=== PATIENT | female | born 1990 | race African-American/Black ===

== ENCOUNTER 2016-11-07 23:07 | Inpatient (IN) | payer OTHER ==
[~2016-11-07] VITALS: Ht 152.4 cm; Wt 70.2 kg
--- NOTE | ~2016-11-07 | P ---
[facility] [place] [address] PROCEDURE REPORT Name: HELEN SORENSEN Room #: 542-P [facility] IN M.R.#: [id number] Admission: 11/08/16 Attend Phys: Rico Ying DO Discharge: Date of : 91 Report #: [id number] THIS REPORT FOR: //name// CC: Rico Ying NO PCP FLEXIBLE SIGMOIDOSCOPY REPORT BRIEF HISTORY: The patient is a 26-year-old woman with history of alternating diarrhea and constipation, abdominal pain, and abnormal CT suggesting a left-sided colitis. She also has been treated for diverticulitis in the past. PREOPERATIVE DIAGNOSES: Abnormal CT revealing colitis with abdominal pain. POSTOPERATIVE DIAGNOSES: Abnormal CT revealing colitis with abdominal pain. MEDICATIONS: Deep sedation with propofol per anesthesia. SPECIMEN: None. ESTIMATED BLOOD LOSS: None. PROCEDURE: Flexible sigmoidoscopy to the distal transverse colon. FINDINGS: Prior to propofol sedation, procedure of flexible sigmoidoscopy discussed with the patient as well as potential risks and its complications. She indicates she understands and desires to proceed. DESCRIPTION OF PROCEDURE: With the patient in left lateral decubitus position, digital examination was completed. Upon digital examination, it was noted there was a thick mucousy exudate coming from the vagina. The perianal area was unremarkable. Digital rectal exam was unremarkable. Subsequently, the Pentax video pediatric colonoscope was introduced into the rectum, advanced under direct vision to the distal transverse colon. At that point, the scope was slowly withdrawn, and careful circumferential views obtained. The prep was adequate for our purposes today. There was some residual stool material, but overall reasonably good views were obtained. Mucosa was within normal limits. Normal vascular pattern. Normal light reflex. As we withdrew the scope, no mucosal abnormalities were seen. The colonic mucosa was normal. I do not see evidence of colitis or inflammatory changes. The scope was withdrawn in the rectum. Upon retroflexion, no abnormalities were seen other than small hemorrhoids. Scope was withdrawn. The patient tolerated the procedure well. CONDITION OF THE PATIENT UPON DISCHARGE: Following procedure, the patient was drowsy, aroused and conversant. She will be discharged home when fully ambulatory. [facility] [address] [place] [address] PROCEDURE REPORT Name: HELEN SORENSEN Room #: 542-P [facility] IN M.R.#: [id number] Admission: 11/08/16 Attend Phys: Rico Ying DO Discharge: Date of : 91 Report #: [id number] DISPOSITION: The patient with abnormal CT suggesting colitis. There is no evidence of colitis on today's exam. I suspect the thickening noted on CT was related to incomplete distention of the colon at the time of CT. PLAN: She was noted to have a discharge in the vaginal area. MACHINIST APPRENTICE WOOD evaluation may be a consideration for this patient. <ELECTRONICALLY SIGNED> By: Vahid Rodriguez MD 11/17/16 0935 1434 0512 Vahid Rodriguez MD /nt
[2016-11-07 23:09] VITALS: BP 131/72
[2016-11-07] MEDS ORDERED: AUGMENTIN400 MG/53 PO (23:20)
[2016-11-07] MEDS ORDERED: ZOFRAN ODT4 MG PO (23:21)
[2016-11-07] MEDS ORDERED: LIORESAL 10 MG10 MG (23:33)
[2016-11-07] MEDS ORDERED: HYDROCODONE-ACE15 ML PO (23:34)
[2016-11-08 00:34] LABS: ABSOLUTE NEUTROPHILS 5.1 thou/uL (1.4-8.2); BASOPHILS 0.1 % (0.0-2.0); EOSINOPHILS 1.1 % (0.0-3.0); HEMATOCRIT 38.8 % (37.0-47.0); HEMOGLOBIN 12.7 gm/dL (12.0-15.0); MCH 27.9 pg (26.0-34.0); MCHC 32.6 g/dL (28.0-37.0); MCV 85.5 fL (80.0-100.0); MONOCYTES 7.2 % (1.0-8.0); PLATELET COUNT 244 thou/uL (150-400); POLYS 69.6 % (36.0-66.0); RBC 4.54 mil/uL (4.20-5.00); RDW 14.2 % (10.5-14.5); WBC 7.3 thou/uL (4.0-11.0)
[2016-11-08 00:35] LABS: MANUAL DIFF NO
[2016-11-08 00:41] LABS: CALCIUM 9.1 mg/dL (8.5-10.1); CREATININE 0.7 mg/dL (0.6-1.0); POTASSIUM 3.5 mmol/L (3.5-5.1)
[2016-11-08 01:27] VITALS: BP 130/59
[2016-11-08 02:00] VITALS: BP 105/54
[2016-11-08 05:59] VITALS: BP 117/78
[2016-11-08 07:30] VITALS: BP 124/78
[2016-11-08 15:39] VITALS: BP 122/78
[2016-11-08 20:00] VITALS: BP 124/85
[2016-11-09 04:01] VITALS: BP 119/81
[2016-11-09 05:26] LABS: ABSOLUTE NEUTROPHILS 5.2 thou/uL (1.4-8.2); BASOPHILS 0.2 % (0.0-2.0); EOSINOPHILS 2.6 % (0.0-3.0); HEMATOCRIT 34.9 % (37.0-47.0); HEMOGLOBIN 11.3 gm/dL (12.0-15.0); LYMPHOCYTES 19.7 % (24.0-44.0); MANUAL DIFF NO; MCH 27.7 pg (26.0-34.0); MCHC 32.5 g/dL (28.0-37.0); MCV 85.2 fL (80.0-100.0); MONOCYTES 6.5 % (1.0-8.0); PLATELET COUNT 220 thou/uL (150-400); RBC 4.09 mil/uL (4.20-5.00); RDW 13.9 % (10.5-14.5); WBC 7.3 thou/uL (4.0-11.0)
[2016-11-09 05:42] LABS: CALCIUM 8.9 mg/dL (8.5-10.1); CREATININE 0.8 mg/dL (0.6-1.0); POTASSIUM 3.6 mmol/L (3.5-5.1)
[2016-11-09 10:16] VITALS: BP 126/71
[2016-11-09 15:03] VITALS: BP 125/85
[2016-11-09 15:16] LABS: URINE BILIRUBIN NEGATIVE (Negative); URINE BLOOD TRACE (Negative); URINE COLOR YELLOW; URINE GLUCOSE-RANDOM* NEGATIVE (Negative); URINE KETONES 2+ (Negative); URINE LEUKOCYTES-REFLEX 1+ (Negative); URINE PROTEIN (DIPSTICK) NEGATIVE (Negative); URINE UROBILINOGEN 0.2 E.U./dl (0.2-1.0)
[2016-11-09 15:24] LABS: SQUAMOUS >10 Many /LPF (0-3); YEAST-REFLEX Present (None Seen)
[2016-11-09 15:25] LABS: CASTS None Seen /LPF (None Seen); CRYSTALS None Seen /LPF (None Seen); URINE RBC 0-2 Rare /HPF (0-2); URINE WBC-REFLEX 0-5 Rare /HPF (0-5)
[2016-11-09 20:35] VITALS: BP 113/69
[2016-11-10 06:49] LABS: HEMATOCRIT 34.8 % (37.0-47.0); HEMOGLOBIN 11.5 gm/dL (12.0-15.0); MCHC 32.9 g/dL (28.0-37.0); MCV 85.1 fL (80.0-100.0); RBC 4.09 mil/uL (4.20-5.00); WBC 7.4 thou/uL (4.0-11.0)
[2016-11-10 06:56] LABS: CALCIUM 8.7 mg/dL (8.5-10.1); CREATININE 0.8 mg/dL (0.6-1.0); POTASSIUM 3.5 mmol/L (3.5-5.1)
[2016-11-10 07:20] VITALS: BP 121/81
[2016-11-10 15:54] VITALS: BP 134/84
[2016-11-10 19:23] VITALS: BP 123/80
[2016-11-11 04:50] VITALS: BP 107/68
[2016-11-11 13:31] VITALS: BP 122/62
[2016-11-11 16:25] VITALS: BP 122/70
[2016-11-11 19:40] VITALS: BP 112/70
[2016-11-12 04:40] VITALS: BP 108/62
[2016-11-12 07:53] VITALS: BP 116/70
[2016-11-12 15:18] VITALS: BP 102/62
[2016-11-12 19:34] VITALS: BP 157/99
[2016-11-13 03:35] VITALS: BP 100/53
[2016-11-13 08:10] VITALS: BP 113/63
[2016-11-13 15:03] VITALS: BP 109/67
[2016-11-13 20:00] VITALS: BP 118/80
[2016-11-14 04:10] VITALS: BP 110/69
[2016-11-14 09:02] VITALS: BP 100/53
[2016-11-14 17:03] VITALS: BP 116/77
[2016-11-14 19:23] VITALS: BP 111/66
[2016-11-15 03:05] VITALS: BP 112/66
[2016-11-15 08:43] VITALS: BP 104/67
[2016-11-15 15:25] VITALS: BP 116/64
[2016-11-15 19:27] VITALS: BP 114/68
[2016-11-16 07:29] VITALS: BP 102/45
[2016-11-16 15:42] VITALS: BP 90/63
[2016-11-16 20:11] VITALS: BP 127/67
[2016-11-17 05:36] VITALS: BP 127/53
[2016-11-17 05:39] VITALS: BP 124/74
[2016-11-17] MEDS ORDERED: ERYPED 200 MG/200 MG PO (08:15)
[2016-11-17 08:30] VITALS: BP 143/80
[2016-11-17 09:57] VITALS: BP 143/80
== END 2016-11-17 11:20 | disposition home or self-care (01) | DRG 392 ==
LOC: ER 23:07 → 5S 11-08 01:17 → EROBS 11-08 01:17 → 5S 11-08 01:49
PROVIDERS: Emergency Medicine; Family Medicine; Nurse Practitioner Adult Health
PROC: 0DJD8ZZ Inspection of Lower Intestinal Tract, Via Natural or Artificial Opening Endoscopic (ICD-10-PCS; principal; 2016-11-11)
DX: K52.9 Noninfective gastroenteritis and colitis, unspecified (principal); K56.7 Ileus, unspecified; G80.9 Cerebral palsy, unspecified; K59.00 Constipation, unspecified; G89.29 Other chronic pain; F41.9 Anxiety disorder, unspecified; R13.12 Dysphagia, oropharyngeal phase; K31.84 Gastroparesis; M54.9 Dorsalgia, unspecified; I10 Essential (primary) hypertension; E66.9 Obesity, unspecified; R10.2 Pelvic and perineal pain; K64.8 Other hemorrhoids; Z91.018 Allergy to other foods; Z88.6 Allergy status to analgesic agent; Z91.013 Allergy to seafood; Z79.899 Other long term (current) drug therapy; Z83.3 Family history of diabetes mellitus; Z82.49 Family history of ischemic heart disease and other diseases of the circulatory system; Z68.30 Body mass index [BMI] 30.0-30.9, adult
CPT/HCPCS: 10086; 62110; 62900; 70005

== ENCOUNTER 2016-11-26 21:05 | Inpatient (IN) | payer OTHER ==
[~2016-11-26] VITALS: Ht 152.4 cm; Wt 68.0 kg
--- NOTE | ~2016-11-26 | HC ---
[facility] [place] [address] CONSULTATION Name: HELEN SORENSEN Room #: 315-P ADM IN M.R.#: [id number] Admission: 11/26/16 Attend Phys: Shannan Sandoval MD Discharge: Date of : 91 Report #: [id number] THIS REPORT FOR: //name// CC: [facility] physician/PCP Jacinto Thompson MD DATE OF SERVICE: 11/27/2016 HISTORY OF PRESENT ILLNESS: The patient is a 26-year-old female who is actually recently hospitalized for abdominal pain, nausea, vomiting, diarrhea and just discharged on November 17. During that hospitalization, she underwent a flexible sigmoidoscopy by Dr. Rodriguez, which was normal. This was done as she had a possible colitis noted on CT scan. Her C. diff was negative at the time, an attempted ultrasound with Dopplers of the mesentery was not able to visualize the vessels due to bowel gas. A gastric emptying time was performed, which was delayed and the patient was started on erythromycin. She was treated with antibiotics and improved. She also had a vaginal discharge at the time and was treated for this as well. She now returns with abdominal pain, nausea, vomiting, diarrhea. The patient has a history of cerebral palsy. She is a fairly good historian. She has a long history of dysphagia and feeding tube has been recommended and discussed in the past; however, the patient has not wanted to proceed with that. She has a possible history of diverticulitis in the past. She believes she may have seen some blood in her stool. She denies any hematemesis. Her pain seems to be more on the left side and again she is complaining of diarrhea, possible fevers, no chills. PAST MEDICAL HISTORY: Cerebral palsy, history of dysphagia, possible diverticulitis in the past, recent hospitalization as described above, anxiety, chronic back pain, history of childhood seizures, previous heel and hamstring releases. REVIEW OF SYSTEMS: As per HPI. SOCIAL HISTORY: She denies any tobacco or alcohol use. FAMILY HISTORY: Negative for colon cancer. ALLERGIES: To APPLE, IBUPROFEN, SHELL FISH and BLUEBERRY. CURRENT MEDICATIONS: Ciprofloxacin, metronidazole, morphine p.r.n., baclofen, IV fluids, Zofran p.r.n. PHYSICAL EXAMINATION: VITAL SIGNS: Temperature on admission yesterday was 101.3, today is 98.4, pulse is 84, blood pressure 93/53, respiratory rate 16. [facility] [address] [place] [address] CONSULTATION Name: HELEN SORENSEN Room #: 315-P [facility] IN [facility].#: [id number] Admission: 11/26/16 Attend Phys: Shannan Sandoval MD Discharge: Date of : 91 Report #: [id number] GENERAL: She is in no acute distress. HEENT: Sclerae nonicteric. Oropharynx clear. NECK: Supple. CARDIOVASCULAR: Regular rate. CHEST: Clear to auscultation anteriorly bilaterally. ABDOMEN: Soft. She is tender to palpation, mildly more on the left than the right, nondistended, positive bowel sounds. EXTREMITIES: No edema. LABORATORY DATA: Sodium 138, potassium 3.6, chloride 102, bicarbonate 23, BUN 2, creatinine 0.9. AST 18, lipase 143, total bilirubin 0.5, alkaline phosphatase 71 and ALT is 18, total protein 8.9 and albumin 4.0. WBC is 9.8, hemoglobin 13.6, platelet count is 317. UA, bacteria 1-9, blood +1, nitrite negative, IMAGING: CT scan of the abdomen and pelvis done yesterday apparent long segment of thickening in the bowel and the pelvis, which appears to represent the sigmoid colon, inflammatory bowel disease, diverticulitis, ischemia, infiltration wall thickening. This may be related to ischemic change. Evaluation is somewhat limited secondary to no oral or IV contrast. There is associated mildly enlarged mesenteric and ileocolic lymph nodes. There is some stranding around the colon and ileocecal region. Appendix is normal in size, appendicitis would be difficult to exclude. ASSESSMENT AND PLAN: 1. Abdominal pain, nausea, vomiting, diarrhea. CT again showing a thickening of the colon what appears to be primarily in the sigmoid colon. The patient just had a flexible sigmoidoscopy done by my partner, Dr. Rodriguez on November 11 and no evidence of colitis or other lesions were noted. The patient was febrile on admission. She reportedly had a colonoscopy 2 years ago, which I do not have a copy of those results at the different facility. I would recommend continuing IV antibiotics and monitoring closely. If there is no improvement, could consider a colonoscopy in the near future. We will also check for C. diff, although C. diff was negative last hospitalization, she was on antibiotics during that time as well. 2. History of dysphagia that has been well documented in the past, speech pathology has followed. PEG tube had been recommended in the past as well. The patient does not want a PEG tube at this time. Thank you for allowing me to participate in her care. <ELECTRONICALLY SIGNED> By: Janak Lopez MD 11/30/16 0816 1225 2220 Janak Lopez MD /nt
--- NOTE | ~2016-11-26 | H ---
[facility] [place] [address] HISTORY AND PHYSICAL Name: HELEN SORENSEN Room #: 315-P ADM IN M.R.#: [id number] Admission: 11/26/16 Attend Phys: Shannan Sandoval MD Discharge: Date of : 91 Report #: [id number] THIS REPORT FOR: //name// CC: [facility] physician/PCP Jacinto Thompson ATTENDING: Jannette Thompson PRIMARY CARE PHYSICIAN: Dr. August at ____. CHIEF COMPLAINT: Abdominal pain, nausea and vomiting, diarrhea. HISTORY OF PRESENT ILLNESS: The patient is a 26-year-old -Wallisian female with a history of cerebral palsy, who was just admitted here end of October and was felt to be colitis. She had presented at that time with left-sided abdominal pain and nausea and vomiting. Initially, she has been prescribed oral antibiotics for her colitis, but she was unable to keep her oral meds down. She also had fevers with this and diarrhea for a week. She was evaluated by GI during the hospital stay and underwent flex sigmoidoscopy which did not show any colitis. She ends up having epigastric emptying study which showed slow emptying consistent with gastroparesis and she was started on erythromycin. She apparently when she was discharged, tolerating food and she says she did well initially, but then she could not get her erythromycin fill because her Medicaid would not cover it because it was too expensive and initially they had requested a different medication, but physician apparently did not want to change her medication as prescribed. She says then she again started having nausea and vomiting every time she would eat. She is starting having more diarrhea and at times with streak of blood. Her abdominal pain came back, it was in the left lower quadrant. She is not keeping any food down, but she is keeping some liquids down, so came back into the ER tonight with these complaints. She did receive some pain medication in the ER, which has helped her pain. She has not had any active vomiting since arrival. She does report she had a history of diverticulitis at least twice in the past. PAST MEDICAL HISTORY: Cerebral palsy and borderline hypertension and diverticulitis. PAST SURGICAL HISTORY: Heel and hamstring releases. ALLERGIES: IBUPROFEN and SHELLFISH. HOME MEDICATIONS: Baclofen 10 mg t.i.d. p.r.n. spasticity and hydrocodone q.i.d. p.r.n., Zofran oral p.r.n. SOCIAL HISTORY: The patient lives at home alone, but she does have a caregiver that comes into the home each morning and evening. She is a never smoker. Denies any alcohol or drug use. [address] [address] HISTORY AND PHYSICAL Name: HELEN SORENSEN Room #: 315-P [facility] IN M.R.#: [id number] Admission: 11/26/16 Attend Phys: Shannan Sandoval MD Discharge: Date of : 91 Report #: [id number] FAMILY HISTORY: Significant for diabetes and hypertension in her father. REVIEW OF SYSTEMS: Twelve point review of systems was reviewed with the patient, otherwise negative unless stated in the HPI. PHYSICAL EXAMINATION: GENERAL: The patient is an alert female in no acute distress. VITAL SIGNS: Temperature was 38.5 on arrival, heart rate of 110, respirations 18, blood pressure is 126/75, oxygen 100% on room air. HEENT: PERRLA. Sclerae is nonicteric. Oral mucosa is pink and moist. NECK: Supple, no JVD noted. CARDIOVASCULAR: Normal S1, S2. No murmurs, rubs or gallops. RESPIRATORY: Breath sounds are clear bilaterally. She is diminished in both lower lobes. Breathing is nonlabored. ABDOMEN: Soft and tender around the left lower quadrant. Bowel sounds are hypoactive. VASCULAR: No edema noted. Pedal pulses are 2+. EXTREMITIES: She does have rigid extremities and contractures of bilateral hands and arms. NEUROLOGIC: The patient is alert and oriented. She is answering questions appropriately. Speech is dysarthric which is chronic for her with her cerebral palsy. LABORATORY DATA AND DIAGNOSTICS: WBC is 9.8, hemoglobin 13.6, platelets 317. Sodium 138, potassium 3.6, BUN 2, creatinine 0.9, glucose 95. Lactic acid was 2.9. LFTs are within normal limits. Lipase is 143. UA showed 2+ ketones, but no leukocyte esterase or WBCs and there were a few bacteria and heavy mucus. CT abdomen and pelvic shows apparent long segment of thickening of bowel and pelvis which appears to represent a sigmoid colon, inflammatory bowel disease, diverticulitis ischemia, infiltration among others can cause thickening. The long segment may be related to ischemic changes, and distal ____ colon shows atypical for tumor. There is mildly enlarged mesenteric and ileocolic lymph nodes. There is some stranding around the colon and ____ region. The appendix was normal in size, although there is adjacent adenopathy and stranding. There is also fatty infiltration of the liver. ASSESSMENT AND PLAN: 1. Colitis versus diverticulitis. It is not clear why her symptoms came back, so quickly. When her flex sigmoidoscopy that she had during hospitalization 2 weeks to ago did not show any colitis. We will again consult gastrointestinal due to these findings on tonight CT. We will resume IV Cipro and Flagyl for now and antiemetics and pain control. 2. Gastroparesis. This was seen on recent gastric emptying study. She apparently was unable to fill erythromycin because her Medicaid would not cover it. We will start her on Reglan and see if that would be covered by Medicaid at [facility] [place] [address] HISTORY AND PHYSICAL Name: HELEN SORENSEN Room #: 315-P ADM IN M.R.#: [id number] Admission: 11/26/16 Attend Phys: Shannan Sandoval MD Discharge: Date of : 91 Report #: [id number] discharge. 3. Cerebral palsy. 4. Deep venous thrombosis prophylaxis, place sequential compression devices. We will continue to follow the patient closely throughout the hospitalization and make changes based on clinical status. <ELECTRONICALLY SIGNED> By: SRIDEVI Roberts 12/01/16 0729 0848 1136 SRIDEVI Roberts /nt
[~2016-11-26 21:05] MED LIST: AUGMENTIN400 MG/53 PO; ERYPED 200 MG/200 MG PO; HYDROCODONE-ACE15 ML PO; LIORESAL 10 MG10 MG; ZOFRAN ODT4 MG PO
[2016-11-26 21:12] VITALS: BP 126/75
[2016-11-26 21:53] LABS: URINE BLOOD 1+ (Negative); URINE GLUCOSE-RANDOM* NEGATIVE (Negative); URINE KETONES 2+ (Negative); URINE NITRITE NEGATIVE (Negative); URINE PROTEIN (DIPSTICK) 1+ (Negative); URINE SPECIFIC GRAVITY >= 1.030 (1.003-1.035); URINE UROBILINOGEN 0.2 E.U./dl (0.2-1.0)
[2016-11-26 22:00] LABS: ICTOTEST (BILI CONFIRMATORY) Negative (Negative); URINE BILIRUBIN NEGATIVE (Negative); URINE COLOR DARK YELLOW
[2016-11-26 22:08] LABS: AMORPHOUS URATES Few /LPF (None Seen); CASTS None Seen /LPF (None Seen); CRYSTALS None Seen /LPF (None Seen); SQUAMOUS 0-3 Few /LPF (0-3)
[2016-11-26 22:09] LABS: BACTERIA 1-9 Few /HPF (None Seen); URINE RBC 0-2 Rare /HPF (0-2); URINE WBC 0-5 Rare /HPF (0-5)
[2016-11-26 23:12] LABS: HEMOGLOBIN 13.6 gm/dL (12.0-15.0)
[2016-11-26 23:13] LABS: HEMATOCRIT 41.3 % (37.0-47.0); MCH 27.5 pg (26.0-34.0); MCHC 32.9 g/dL (28.0-37.0); MCV 83.5 fL (80.0-100.0); PLATELET COUNT 317 thou/uL (150-400); RBC 4.95 mil/uL (4.20-5.00); RDW 14.1 % (10.5-14.5); WBC 9.8 thou/uL (4.0-11.0)
[2016-11-26 23:14] LABS: MANUAL DIFF YES
[2016-11-26 23:21] LABS: CALCIUM 9.4 mg/dL (8.5-10.1); CREATININE 0.9 mg/dL (0.6-1.0); POTASSIUM 3.6 mmol/L (3.5-5.1)
[2016-11-26 23:25] LABS: TOTAL BILIRUBIN 0.5 mg/dL (<0.1-1.0); TOTAL PROTEIN 8.9 g/dL (6.4-8.2)
[2016-11-27 00:23] LABS: ANISOCYTOSIS SLIGHT; TOTAL CELL COUNT 100
[2016-11-27 01:00] VITALS: BP 113/60
[2016-11-27 04:00] VITALS: BP 88/54
[2016-11-27 08:31] VITALS: BP 93/53
[2016-11-27 17:45] VITALS: BP 106/61
[2016-11-27 20:00] VITALS: BP 118/73
[2016-11-27] MEDS ORDERED: PROAIR HFA8.5 GM INH (20:47)
[2016-11-28 04:00] VITALS: BP 93/44
[2016-11-28 05:25] LABS: HEMATOCRIT 32.8 % (37.0-47.0); MCH 27.5 pg (26.0-34.0); MCV 83.5 fL (80.0-100.0); PLATELET COUNT 243 thou/uL (150-400); RBC 3.92 mil/uL (4.20-5.00); RDW 14.5 % (10.5-14.5); WBC 4.7 thou/uL (4.0-11.0)
[2016-11-28 05:44] LABS: HEMOGLOBIN 10.8 gm/dL (12.0-15.0); MANUAL DIFF YES
[2016-11-28 05:45] LABS: CALCIUM 8.4 mg/dL (8.5-10.1); CREATININE 0.7 mg/dL (0.6-1.0); POTASSIUM 3.1 mmol/L (3.5-5.1)
[2016-11-28 07:51] LABS: ATYPICAL LYMPHS 2 %; TOTAL CELL COUNT 100
[2016-11-28 07:52] LABS: ANISOCYTOSIS SLIGHT
[2016-11-28 17:49] VITALS: BP 128/82
[2016-11-28 19:52] VITALS: BP 127/82
[2016-11-29 03:31] VITALS: BP 112/72
[2016-11-29 05:54] LABS: CALCIUM 7.9 mg/dL (8.5-10.1); CREATININE 0.5 mg/dL (0.6-1.0)
[2016-11-29 06:03] LABS: HEMOGLOBIN 10.4 gm/dL (12.0-15.0); MCH 27.7 pg (26.0-34.0); MCHC 33.4 g/dL (28.0-37.0); PLATELET COUNT 209 thou/uL (150-400); RBC 3.74 mil/uL (4.20-5.00); RDW 14.1 % (10.5-14.5)
[2016-11-29 06:09] LABS: MANUAL DIFF YES
[2016-11-29 07:41] LABS: ABSOLUTE NEUTROPHILS 2.4 thou/uL (1.4-8.2); TOTAL CELL COUNT 100
[2016-11-29 07:42] LABS: ANISOCYTOSIS SLIGHT
[2016-11-29 07:57] VITALS: BP 120/73
[2016-11-29 20:00] VITALS: BP 212/101
[2016-11-29 20:39] VITALS: BP 132/82
[2016-11-30 04:00] VITALS: BP 109/70
[2016-11-30 07:26] LABS: ANION GAP 12 mmol/L (7-16); BUN < 1 mg/dL (7-18); CALCIUM 8.4 mg/dL (8.5-10.1); CHLORIDE 107 mmol/L (98-107); CO2 23 mmol/L (21-32); CREATININE 0.6 mg/dL (0.6-1.0); GLUCOSE 98 mg/dL (74-106); POTASSIUM 3.1 mmol/L (3.5-5.1); SODIUM 142 mmol/L (136-145)
[2016-11-30 08:56] VITALS: BP 120/81
[2016-11-30 15:25] VITALS: BP 135/82
[2016-11-30 20:45] VITALS: BP 117/47
[2016-12-01 05:10] VITALS: BP 110/56
[2016-12-01 05:22] LABS: BASOPHILS 0.5 % (0.0-2.0); EOSINOPHILS 3.2 % (0.0-3.0); HEMATOCRIT 33.3 % (37.0-47.0); LYMPHOCYTES 30.8 % (24.0-44.0); MCH 27.1 pg (26.0-34.0); MCHC 32.9 g/dL (28.0-37.0); MCV 82.5 fL (80.0-100.0); MONOCYTES 10.2 % (1.0-8.0); PLATELET COUNT 206 thou/uL (150-400); POLYS 55.3 % (36.0-66.0); RBC 4.04 mil/uL (4.20-5.00); WBC 5.4 thou/uL (4.0-11.0)
[2016-12-01 05:26] LABS: MANUAL DIFF NO
[2016-12-01 05:28] LABS: CALCIUM 8.2 mg/dL (8.5-10.1); CREATININE 0.6 mg/dL (0.6-1.0); POTASSIUM 3.4 mmol/L (3.5-5.1)
[2016-12-01 08:03] VITALS: BP 127/80
[2016-12-01] MEDS ORDERED: VANCOMYCIN100 MG/ML PO (14:08)
[2016-12-01 17:26] VITALS: BP 127/80
== END 2016-12-01 17:36 | disposition home or self-care (01) | DRG 872 ==
LOC: ER 21:05 → 3N 23:47 → EROBS 23:47 → 3N 11-27 00:48
PROVIDERS: Internal Medicine Endocrinology, Diabetes & Metabolism; Physician Assistant
PROC: 02HV33Z Insertion of Infusion Device into Superior Vena Cava, Percutaneous Approach (ICD-10-PCS; principal; 2016-11-28)
PROC: B548ZZA Ultrasonography of Superior Vena Cava, Guidance (ICD-10-PCS; principal; 2016-11-28)
DX: A41.9 Sepsis, unspecified organism (principal); A04.7 Enterocolitis due to Clostridium difficile; G80.9 Cerebral palsy, unspecified; K31.84 Gastroparesis; I10 Essential (primary) hypertension; F41.9 Anxiety disorder, unspecified; E87.6 Hypokalemia; G89.29 Other chronic pain; M54.9 Dorsalgia, unspecified; Z88.6 Allergy status to analgesic agent; Z91.018 Allergy to other foods; Z91.013 Allergy to seafood; Z79.899 Other long term (current) drug therapy; Z83.3 Family history of diabetes mellitus; Z82.49 Family history of ischemic heart disease and other diseases of the circulatory system
CPT/HCPCS: 10096; 27000

== ENCOUNTER 2016-12-26 20:24 | Inpatient (IN) | payer OTHER ==
[~2016-12-26] VITALS: Ht 152.4 cm; Wt 64.9 kg
[~2016-12-26 20:24] MED LIST changes: +PROAIR HFA8.5 GM INH; +VANCOMYCIN100 MG/ML PO
[2016-12-26 20:36] VITALS: BP 111/78
[2016-12-26 21:27] LABS: ABSOLUTE NEUTROPHILS 12.3 thou/uL (1.4-8.2); BASOPHILS 0.2 % (0.0-2.0); EOSINOPHILS 0.5 % (0.0-3.0); HEMATOCRIT 37.9 % (37.0-47.0); HEMOGLOBIN 12.4 gm/dL (12.0-15.0); LYMPHOCYTES 11.2 % (24.0-44.0); MCH 26.9 pg (26.0-34.0); MCHC 32.7 g/dL (28.0-37.0); MCV 82.1 fL (80.0-100.0); MONOCYTES 10.4 % (1.0-8.0); PLATELET COUNT 269 thou/uL (150-400); POLYS 77.7 % (36.0-66.0); RBC 4.61 mil/uL (4.20-5.00); WBC 15.8 thou/uL (4.0-11.0)
[2016-12-26 21:28] LABS: MANUAL DIFF NO
[2016-12-26 21:45] LABS: ALBUMIN 3.3 g/dL (3.4-5.0); CALCIUM 8.9 mg/dL (8.5-10.1); CREATININE 0.7 mg/dL (0.6-1.0); DIRECT BILIRUBIN 0.2 mg/dL (<0.1-0.3); TOTAL BILIRUBIN 0.5 mg/dL (<0.1-1.0)
[2016-12-26 21:47] LABS: POTASSIUM 2.9 mmol/L (3.5-5.1)
[2016-12-27] VITALS (8 sets, daily range): BP systolic 94–131; BP diastolic 55–83
[2016-12-27 07:17] LABS: CALCIUM 8.6 mg/dL (8.5-10.1); CREATININE 0.7 mg/dL (0.6-1.0)
[2016-12-27 07:21] LABS: HEMATOCRIT 36.1 % (37.0-47.0); HEMOGLOBIN 11.4 gm/dL (12.0-15.0); MCH 26.3 pg (26.0-34.0); MCHC 31.6 g/dL (28.0-37.0); MCV 83.3 fL (80.0-100.0); RBC 4.33 mil/uL (4.20-5.00); RDW 15.3 % (10.5-14.5); WBC 11.2 thou/uL (4.0-11.0)
[2016-12-28 03:34] VITALS: BP 101/57
[2016-12-28 05:32] LABS: HEMATOCRIT 28.9 % (37.0-47.0); HEMOGLOBIN 9.5 gm/dL (12.0-15.0); MCHC 32.9 g/dL (28.0-37.0); MCV 82.1 fL (80.0-100.0); PLATELET COUNT 221 thou/uL (150-400); RBC 3.52 mil/uL (4.20-5.00); RDW 15.1 % (10.5-14.5); WBC 12.4 thou/uL (4.0-11.0)
[2016-12-28 05:42] LABS: MANUAL DIFF YES
[2016-12-28 06:27] LABS: ABSOLUTE NEUTROPHILS 8.7 thou/uL (1.4-8.2); TOTAL CELL COUNT 100
[2016-12-28 06:52] LABS: ALBUMIN 2.4 g/dL (3.4-5.0); CALCIUM 7.9 mg/dL (8.5-10.1); CREATININE 0.9 mg/dL (0.6-1.0); MAGNESIUM 1.8 mg/dL (1.8-2.4); POTASSIUM 3.5 mmol/L (3.5-5.1); TOTAL BILIRUBIN 0.3 mg/dL (<0.1-1.0); TOTAL PROTEIN 6.1 g/dL (6.4-8.2)
[2016-12-28 08:28] VITALS: BP 106/73
[2016-12-28 11:51] VITALS: BP 134/91
[2016-12-28 15:48] VITALS: BP 122/78
[2016-12-28 20:47] VITALS: BP 121/69
[2016-12-29 03:34] VITALS: BP 110/70
[2016-12-29 06:36] LABS: ABSOLUTE NEUTROPHILS 4.6 thou/uL (1.4-8.2); BASOPHILS 0.4 % (0.0-2.0); EOSINOPHILS 2.8 % (0.0-3.0); HEMATOCRIT 31.3 % (37.0-47.0); HEMOGLOBIN 10.3 gm/dL (12.0-15.0); LYMPHOCYTES 28.7 % (24.0-44.0); MCH 26.9 pg (26.0-34.0); MCHC 32.8 g/dL (28.0-37.0); MCV 81.9 fL (80.0-100.0); MONOCYTES 8.5 % (1.0-8.0); PLATELET COUNT 239 thou/uL (150-400); POLYS 59.6 % (36.0-66.0); RBC 3.82 mil/uL (4.20-5.00); RDW 15.5 % (10.5-14.5); WBC 7.7 thou/uL (4.0-11.0)
[2016-12-29 06:58] LABS: MANUAL DIFF NO
[2016-12-29 08:22] VITALS: BP 115/87
[2016-12-29 12:02] VITALS: BP 113/66
[2016-12-29 16:27] VITALS: BP 129/70
[2016-12-29 20:05] VITALS: BP 135/86
[2016-12-30 04:20] VITALS: BP 127/64
[2016-12-30 06:36] LABS: CREATININE 0.6 mg/dL (0.6-1.0); POTASSIUM 3.3 mmol/L (3.5-5.1)
[2016-12-30 08:20] VITALS: BP 119/75
[2016-12-30 12:47] VITALS: BP 107/74
[2016-12-30 16:12] VITALS: BP 106/63
[2016-12-30 19:54] VITALS: BP 136/84
[2016-12-31 04:42] VITALS: BP 119/77
[2016-12-31 07:29] VITALS: BP 103/57
[2016-12-31 07:43] LABS: CALCIUM 8.3 mg/dL (8.5-10.1); CREATININE 0.6 mg/dL (0.6-1.0); POTASSIUM 3.6 mmol/L (3.5-5.1)
[2016-12-31 11:32] VITALS: BP 138/113
[2016-12-31 16:23] VITALS: BP 129/75
[2016-12-31 19:58] VITALS: BP 137/82
[2017-01-01 03:39] VITALS: BP 118/80
[2017-01-01 08:45] VITALS: BP 101/59
[2017-01-01 13:01] VITALS: BP 118/65
[2017-01-01 16:44] VITALS: BP 113/77
[2017-01-01 19:34] VITALS: BP 158/88
[2017-01-02 04:39] VITALS: BP 115/67
[2017-01-02 08:10] VITALS: BP 108/73
[2017-01-02] MEDS ORDERED: VANCOMYCIN100 MG/ML PO (11:54)
[2017-01-02] MEDS ORDERED: PROTONIX40 M2 PO (11:55)
[2017-01-02] MEDS ORDERED: PROBIOTIC1 EAC1 PO (11:55)
[2017-01-02 12:01] VITALS: BP 108/73
[2017-01-02 12:32] VITALS: BP 119/63
[2017-01-02 13:08] VITALS: BP 108/73
== END 2017-01-02 14:02 | disposition home or self-care (01) | DRG 872 ==
LOC: ER 20:24 → 4W 22:14 → EROBS 22:14 → 4W 12-27 00:33
PROVIDERS: Emergency Medicine; Hospitalist; Nurse Practitioner Family
PROC: B548ZZA Ultrasonography of Superior Vena Cava, Guidance (ICD-10-PCS; principal; 2016-12-27)
PROC: 02HV33Z Insertion of Infusion Device into Superior Vena Cava, Percutaneous Approach (ICD-10-PCS; principal; 2016-12-27)
DX: A41.9 Sepsis, unspecified organism (principal); A04.7 Enterocolitis due to Clostridium difficile; E87.6 Hypokalemia; E83.42 Hypomagnesemia; R07.9 Chest pain, unspecified; R13.10 Dysphagia, unspecified; K31.84 Gastroparesis; F41.9 Anxiety disorder, unspecified; G89.29 Other chronic pain; M54.9 Dorsalgia, unspecified; G80.9 Cerebral palsy, unspecified; Z79.899 Other long term (current) drug therapy; Z91.018 Allergy to other foods; Z88.6 Allergy status to analgesic agent; Z91.013 Allergy to seafood; Z83.3 Family history of diabetes mellitus; Z82.49 Family history of ischemic heart disease and other diseases of the circulatory system
CPT/HCPCS: 10045; 27001

== ENCOUNTER 2018-08-09 09:14 | Inpatient (IN) | payer OTHER ==
[~2018-08-09] VITALS: Ht 149.9 cm; Wt 47.9 kg
[~2018-08-09 09:14] MED LIST changes: +PROBIOTIC1 EAC1 PO; +PROTONIX40 M2 PO
[2018-08-09 09:16] VITALS: BP 137/88
[2018-08-09] MEDS ORDERED: ZOLMITRIPTAN O2.5 MG PO (09:23)
[2018-08-09] MEDS ORDERED: RANITIDINE15 MG/1 ML PO (09:24)
[2018-08-09] MEDS ORDERED: HYDROCHLOROTH12.5 M1 PO (09:24)
[2018-08-09] MEDS ORDERED: ACETAMINOPHEN12.5 ML PO (09:25)
[2018-08-09] MEDS ORDERED: MIRALAX17 GM PO (09:25)
[2018-08-09] MEDS ORDERED: CLARITIN10 MG PO (09:26)
[2018-08-09 10:35] LABS: ABSOLUTE NEUTROPHILS 2.4 thou/uL (1.4-8.2); BASOPHILS 0.5 % (0.0-2.0); CALCIUM 9.6 mg/dL (8.5-10.1); CREATININE 0.9 mg/dL (0.6-1.0); EOSINOPHILS 0.5 % (0.0-3.0); HEMATOCRIT 38.8 % (37.0-47.0); HEMOGLOBIN 12.9 gm/dL (12.0-15.0); LYMPHOCYTES 36.6 % (24.0-44.0); MCH 28.3 pg (26.0-34.0); MCHC 33.2 g/dL (28.0-37.0); MCV 85.2 fL (80.0-100.0); MONOCYTES 5.8 % (1.0-8.0); PLATELET COUNT 251 thou/uL (150-400); POLYS 56.6 % (36.0-66.0); POTASSIUM 4.2 mmol/L (3.5-5.1); RBC 4.56 mil/uL (4.20-5.00); RDW 13.4 % (10.5-14.5); WBC 4.2 thou/uL (4.0-11.0)
[2018-08-09 10:41] LABS: ALBUMIN 4.3 g/dL (3.4-5.0); TOTAL BILIRUBIN 0.6 mg/dL (<0.1-1.0); TOTAL PROTEIN 8.6 g/dL (6.4-8.2)
[2018-08-09 12:56] VITALS: BP 124/64
[2018-08-09 13:01] VITALS: BP 115/61
[2018-08-09 13:45] VITALS: BP 113/64
[2018-08-09 19:33] VITALS: BP 120/88
[2018-08-10 00:33] VITALS: BP 118/79
[2018-08-10 05:24] VITALS: BP 121/73
[2018-08-10 05:35] LABS: HEMATOCRIT 40.9 % (37.0-47.0); HEMOGLOBIN 13.2 gm/dL (12.0-15.0); MCH 27.8 pg (26.0-34.0); MCHC 32.3 g/dL (28.0-37.0); MCV 86.1 fL (80.0-100.0); RBC 4.76 mil/uL (4.20-5.00); RDW 13.7 % (10.5-14.5); WBC 5.5 thou/uL (4.0-11.0)
[2018-08-10 05:50] LABS: CALCIUM 9.6 mg/dL (8.5-10.1); CREATININE 0.6 mg/dL (0.6-1.0); POTASSIUM 3.8 mmol/L (3.5-5.1)
[2018-08-10 07:22] VITALS: BP 123/80
[2018-08-10 15:52] VITALS: BP 103/66
[2018-08-10 18:56] VITALS: BP 100/60
[2018-08-11 03:22] VITALS: BP 90/48
[2018-08-11 07:34] VITALS: BP 122/60
[2018-08-11 15:45] VITALS: BP 102/64
[2018-08-11 19:59] VITALS: BP 109/68
[2018-08-12 03:37] VITALS: BP 99/45
[2018-08-12 07:20] VITALS: BP 123/68
[2018-08-12 16:09] VITALS: BP 129/81
[2018-08-12 19:01] VITALS: BP 122/58
[2018-08-13 03:35] VITALS: BP 111/61
[2018-08-13 07:23] VITALS: BP 115/66
[2018-08-13 11:07] LABS: HEMATOCRIT 37.9 % (37.0-47.0); HEMOGLOBIN 12.4 gm/dL (12.0-15.0); MCH 28.4 pg (26.0-34.0); MCHC 32.8 g/dL (28.0-37.0); MCV 86.4 fL (80.0-100.0); RBC 4.38 mil/uL (4.20-5.00); RDW 13.9 % (10.5-14.5); WBC 6.8 thou/uL (4.0-11.0)
[2018-08-13 11:18] LABS: CALCIUM 9.6 mg/dL (8.5-10.1); CREATININE 0.8 mg/dL (0.6-1.0); POTASSIUM 3.9 mmol/L (3.5-5.1)
[2018-08-13 15:05] VITALS: BP 130/98
[2018-08-13 19:36] VITALS: BP 147/76
[2018-08-14 03:47] VITALS: BP 100/53
[2018-08-14 07:20] VITALS: BP 106/65
[2018-08-14 14:13] VITALS: BP 93/48
[2018-08-14 18:58] VITALS: BP 128/48
[2018-08-15 03:18] VITALS: BP 116/63
[2018-08-15 07:50] VITALS: BP 117/72
[2018-08-15 11:11] VITALS: BP 120/81
[2018-08-15 14:35] VITALS: BP 118/55
[2018-08-15 18:34] VITALS: BP 191/64
[2018-08-15 19:10] VITALS: BP 111/73
[2018-08-16 03:10] VITALS: BP 98/58
[2018-08-16 07:42] VITALS: BP 111/70
[2018-08-16 14:13] VITALS: BP 110/72
== END 2018-08-16 15:36 | disposition home or self-care (01) | DRG 153 ==
LOC: ER 09:14 → 4W 12:32 → EROBS 12:32 → 4W 13:10
PROVIDERS: Emergency Medicine; ADMIT Internal Medicine
PROC: B54NZZA Ultrasonography of Left Upper Extremity Veins, Guidance (ICD-10-PCS; principal; 2018-08-11)
PROC: 05HY33Z Insertion of Infusion Device into Upper Vein, Percutaneous Approach (ICD-10-PCS; principal; 2018-08-11)
DX: J02.9 Acute pharyngitis, unspecified (principal); R13.10 Dysphagia, unspecified; G80.9 Cerebral palsy, unspecified; Z60.2 Problems related to living alone; I10 Essential (primary) hypertension; F32.9 Major depressive disorder, single episode, unspecified; F41.9 Anxiety disorder, unspecified; Z88.6 Allergy status to analgesic agent; Z91.02 Food additives allergy status; Z91.013 Allergy to seafood; Z83.3 Family history of diabetes mellitus; Z82.49 Family history of ischemic heart disease and other diseases of the circulatory system
CPT/HCPCS: 10040; 27000

== ENCOUNTER 2019-01-18 17:36 | Inpatient (IN) | payer OTHER ==
[~2019-01-18] VITALS: Ht 149.9 cm; Wt 52.2 kg
--- NOTE | ~2019-01-18 | CRIT ---
[facility] [place] [address] CRITICAL CARE NOTE Name: HELEN SORENSEN Room #: 464-P ADM IN M.R.#: [id number] Admission: 01/18/19 ������������������ Attend Phys: Hector Goode MD Discharge: ������������������ Date of : 91 Report #: [id number] THIS REPORT FOR: //name// CC: Hector Goode [facility] physician/PCP DATE OF SERVICE: 01/20/2019 GASTROINTESTINAL CONSULTATION HISTORY OF PRESENT ILLNESS: The patient is a very pleasant -[place] female with cerebral palsy, who I have been asked to see for further evaluation of several days of nausea and vomiting and loose stools. She denies any significant abdominal pain currently except for maybe some left upper quadrant discomfort. She is unable to give much history secondary to her chronic condition. She has had an episode of C. diff several months ago and has had recurrent C. diff and has been treated in this regard. PAST MEDICAL HISTORY: Her medical history is well outlined in the chart, but includes C. diff, cerebral palsy, sepsis, hypertension, heel and hamstring releases, dysphagia, Schatzki's ring. FAMILY HISTORY: Negative for inflammatory bowel disease or colon cancer. SOCIAL HISTORY: No alcohol or tobacco. REVIEW OF SYSTEMS: Difficult secondary to the patient's ability to give a history. MEDICATIONS: Include albuterol, ondansetron, baclofen, zolmitriptan, hydrochlorothiazide, ranitidine, Tylenol with Codeine, MiraLax, and loratadine. PHYSICAL EXAMINATION: GENERAL: The patient is currently afebrile. VITAL SIGNS: Stable. She has not been febrile during this hospitalization. HEENT: Nonicteric. NECK: No JVD, thyromegaly or bruits. CARDIOVASCULAR: Anterior regular. LUNGS: Clear anteriorly. ABDOMEN: Soft, mild discomfort, left upper quadrant. No rebound, no guarding, no distention. EXTREMITIES: Deferred. NEUROLOGIC: Deferred. RECTAL: Deferred. PERTINENT LABORATORY DATA: On presentation, white count 7.1, hemoglobin 12.2, [address] [address] CRITICAL CARE NOTE Name: HELEN SORENSEN Room #: 4 ADM IN M.R.#: [id number] Admission: 01/18/19 ������������������ Attend Phys: Hector Goode MD Discharge: ������������������ Date of : 91 Report #: [id number] platelet count 246. Serum chemistry reviewed and normal except for total protein of 8.3. Her stool studies are pending. ASSESSMENT AND PLAN: In summary, the patient has nausea, vomiting, and diarrhea. This could be multifactorial, likely related to either acute or recurrent infection. Clostridium difficile is a possibility, although she is nontender and her CT reveals no evidence of colitis. At this point, I would proceed with reintroduction of diet and advance it slowly. I would continue supportive care and followup her stool studies. I would empirically treat her with a PPI to assure that acid reflux and/or reflux esophagitis is not a potential contributor. We will follow concurrently. Thanks again for allowing me to participate in her care. ��������������������������������������������� ���������������������������������������� By: ��������������������������������������������� 1324 2216 Braulio Art MD /nt
[~2019-01-18 17:36] MED LIST changes: +ACETAMINOPHEN12.5 ML PO; +CLARITIN10 MG PO; +HYDROCHLOROTH12.5 M1 PO; +MIRALAX17 GM PO; +RANITIDINE15 MG/1 ML PO; +ZOLMITRIPTAN O2.5 MG PO
[2019-01-18 17:37] VITALS: BP 138/87
[2019-01-18 19:17] LABS: ABSOLUTE NEUTROPHILS 4.5 thou/uL (1.4-8.2); BASOPHILS 0.2 % (0.0-2.0); EOSINOPHILS 0.4 % (0.0-3.0); HEMOGLOBIN 12.2 gm/dL (12.0-15.0); LYMPHOCYTES 31.5 % (24.0-44.0); MCH 28.1 pg (26.0-34.0); MCHC 33.1 g/dL (28.0-37.0); MCV 85.1 fL (80.0-100.0); MONOCYTES 4.6 % (1.0-8.0); PLATELET COUNT 246 thou/uL (150-400); POLYS 63.3 % (36.0-66.0); RBC 4.34 mil/uL (4.20-5.00); RDW 14.3 % (10.5-14.5); WBC 7.1 thou/uL (4.0-11.0)
[2019-01-18 19:22] LABS: CALCIUM 9.4 mg/dL (8.5-10.1); CREATININE 0.8 mg/dL (0.6-1.0); POTASSIUM 4.1 mmol/L (3.5-5.1)
[2019-01-18 19:28] LABS: TOTAL BILIRUBIN 0.1 mg/dL (<0.1-1.0); TOTAL PROTEIN 8.3 g/dL (6.4-8.2)
[2019-01-18 22:10] VITALS: BP 126/78
[2019-01-18 22:25] VITALS: BP 142/93
[2019-01-18 23:13] VITALS: BP 131/83
[2019-01-19] MEDS ORDERED: ZOLPIDEM TARTRA10 MG PO (01:03)
--- NOTE | 2019-01-19 01:16 | NUR ---
ASSUMED CARE OF PT AT 2300 HRS. PT IS AOX4 AND LETS NEEDS BE KNOWN. PT WAS ORIENTED TO THE ROOM AND THE UNIT. ORDERS WERE STARTED. PT WAS ABLE TO ANSWER ALL ADMISSION RELATED QUESTIONS VITAL SIGNS STABLE. PT HAS NO COMPLAINTS OF NAUSEA. PT WAS TREATED FOT PAIN. NO OTHER S/S OF ACUTE DISTRESS. THE NIGHT PROGRESSED, PT WAS ABLE TO GET COMFORTABLE AND SLEEP PART OF THE SHIFT. NO N/V EPISODES. WILL CONTINUE TO MONITOR.
[2019-01-19 04:14] VITALS: BP 121/73
[2019-01-19 08:16] VITALS: BP 124/59
[2019-01-19 14:57] VITALS: BP 120/64
--- NOTE | 2019-01-19 15:46 | NUR ---
Received awake on bed. Due medications given as prescribed. Pt complained of pain, PRN pain meds given as prescribed. With NS at 125cc/hr, infusing well at L Upper arm. A+Ox4. On room air. Maintained on isolation- history of C.Diff, awaiting stool sample. Assisted in ADLs. Called laboratory to ask if blood cultures has been done- as per laboratory staff, a nurse called in and said it will be nurse draw- pt not on any central line; reviewed orders- put in as line draw, Dr Vivar informed and said just to re-order as peripheral draw. Laboratory staff came up and unable to draw bloods- called in IV nurse to help and was just able to collect 1 specimen from her peripheral line and unable to find anywhere else, she suggests that if patient will be having any treatment- might consider having a port- Dr Vivar informed through [facility]. Pt on clear liquids- encouraged to eat. Able to use bedpan to pass urine. Turned on her sides regularly. Vital signs stable.
[2019-01-19 19:50] VITALS: BP 135/102
[2019-01-20 05:49] LABS: HEMATOCRIT 36.9 % (37.0-47.0); MCH 28.1 pg (26.0-34.0); MCHC 32.6 g/dL (28.0-37.0); MCV 85.9 fL (80.0-100.0); RBC 4.29 mil/uL (4.20-5.00); RDW 14.5 % (10.5-14.5); WBC 3.9 thou/uL (4.0-11.0)
[2019-01-20 06:00] LABS: CALCIUM 9.2 mg/dL (8.5-10.1); CREATININE 0.9 mg/dL (0.6-1.0); POTASSIUM 3.4 mmol/L (3.5-5.1)
--- NOTE | 2019-01-20 07:12 | NUR ---
ASSUMED CARE AROUND 1900. AXOX3. PERSISTENT NAUSEA AND ABD PAIN. IV INFILTRATED IN AM. PER REPORT RECEIVED FROM PREVIOUS DAY RN, GAVE REPORT TO INCOMING RN TO REPORT TO FOR POSSIBLE PICC/PORT INSERTION. NO S/S ACUTE DISTRESS NOTED OR REPORTED AT THIS TIME. CARE TRANSFERRED TO DAY RN AT THIS TIME.
[2019-01-20 08:00] VITALS: BP 126/77
--- NOTE | 2019-01-20 11:27 | NUR ---
VASCULAR ACCESS CONSULTED FOR MIDLINE. PT'S HISTORY,LABS,MEDS REVIEWED. DISCUSSED BENEFITS AND RISK WITH PT, VERBALIZED UNDERSTANDING AND GAVE VERBA; CONSENT FOR ML. JOSE DANIEL BASILIC WAS WIDELY PATENT WITH USG. 4FR POWER MIDLINE TRIMMED TO 15CM INSERTED TO 1CM EXTERNAL PER HOSPITAL P&P. ML RELEASED FOR IMMEDIATE USE PER PROTOCOL TO JEFFERY HERNANDEZ.
--- NOTE | 2019-01-20 15:17 | EKG ---
[address] [place] [address] ELECTROCARDIOGRAM REPORT Name: HELEN SORENSEN Room #: 464-P ADM IN M.R.#: [id number] ������������������ Admission: 01/18/19 ������������������ Attend Phys: Hector Goode MD Discharge: ������������������ Date of : 91 Report #: [id number] ����������������������������������������������������������������� [id number] THIS REPORT FOR: //name// [facility] ED Test Date: 2019-01-18 Test Time: 18:15:13 Pat Name: HELEN SORNESEN Department: Room: 464 Gender: F Clock Mechanic: JOAQUINA : 1990 Requested By: Sue Hernandez Order Number: [id number] MD: Dave Castillo Measurements Intervals [place] Rate: 97 P: 28 CT: 90 QRS: 55 QRSD: 79 T: 30 QT: 333 QTc: 423 Interpretive Statements Sinus rhythm Short CT interval No previous ECG available for comparison Electronically Signed On 01-20-2019 15:17:03 CDT by Dave Castillo [email or web address] ��������������������������������������������� <ELECTRONICALLY SIGNED> ���������������������������������������� By: Dave Castillo MD, [facility] ��������������������������������������������� 01/20/19 1517 1815 1815 Dave Castillo MD, FACC /EPI
[2019-01-20 16:19] VITALS: BP 102/58
--- NOTE | 2019-01-20 18:36 | NUR ---
PT A&OX4, MIDLINE PLACED IN R UA INTACT INFUSING FLUIDS W/O COMPS. PT IS TOATAL CARE, THOUGH CAN HELP TURN. HAS HAD SOME ABD PAIN TODAY X2 WITH SOME NAUSEA THIS EVENING. TOUCH LIGHT WW/I REACH, BED ALARM ON. WILL CONT POC.
[2019-01-20 20:00] VITALS: BP 137/55
--- NOTE | 2019-01-21 04:35 | NUR ---
PATIENT AOX3 MAKES NEEDS KNOWN. PAIN CONTROLLED THIS SHIFT. PATIENT TURNED Q 2 HOURS. PATIENT IS CONTIENT OF BOTH BOWEL AND BLADDER. PATIENT IN BED ASLEEP AT THIS TIME BREATHING REGULAR AND UNLABOURED.
[2019-01-21 04:59] VITALS: BP 128/57
[2019-01-21 05:48] LABS: HEMATOCRIT 32.9 % (37.0-47.0); HEMOGLOBIN 10.8 gm/dL (12.0-15.0); MCH 28.2 pg (26.0-34.0); MCV 85.5 fL (80.0-100.0); RBC 3.85 mil/uL (4.20-5.00); RDW 14.5 % (10.5-14.5); WBC 4.1 thou/uL (4.0-11.0)
[2019-01-21 06:03] LABS: CALCIUM 8.5 mg/dL (8.5-10.1); CREATININE 0.8 mg/dL (0.6-1.0)
[2019-01-21 09:32] VITALS: BP 107/49
--- NOTE | 2019-01-21 17:06 | NUR ---
PT ADMITTED RELATED TO N/V AND ABD PAIN. CM REVIEWED CHART AND SPOKE WITH CARE TEAM. PT IS FAMILIAR TO CM FROM PREVIOUS ADMISSION. PT INDICATED SHE LIVES ALONE IN AN APARTMENT WITH NO STEPS TO ENTER OR INSIDE. SHE INDICATED SHE HAS BOTH A MANUAL AND ELECTRIC WHEELCAHIR FOR HOME USE. PT INDICATED SHE HAS CARE[employer] SERVICES FOR 2HRS IN AM AND 2HRS IN PM. PT INDICATED HER GRANDPARENTS ARE ABLE TO CHECK IN AND ASSIST HER AT TIMES. PT INDICATED SHE PLANS TO RETURN HOME ONCE MEDICALLY STABLE. CM TO FOLLOW INDICATED WITH DC PLANNING.
--- NOTE | 2019-01-21 17:07 | NUR ---
ASSUMED PATIENT CARE AT 0715. PATIENT RESTING QUIETLY IN BED. VERY PLEASANT AND COOPERATIVE. ABLE TO TURN SELF FOR PA CARE AND REPOSITIONING. SKIN INTACT. ON HER MENSES. STILL HAVING ABD PAIN WHICH IS RELIEVED WITH MORPHINE. MEDICATED ONCE FOR NAUSEA AND HAD COMPLETE RELIEF. PLAN IS TO DO EGD IN AM. INSTRUCTED NPO AFTER MIDNIGHT. CONSENT SIGNED. ATE A SMALL AMOUNT OF YOGURT AND CHICKEN SOUP FOR LUNCH. FALL PRECAUTIONS IN PLACE.
[2019-01-21 19:50] VITALS: BP 120/66
--- NOTE | 2019-01-22 02:33 | NUR ---
PATIENT AOX4 MAKES NEEDS KNOWN. PATIENT CALM AND COOPERATIVE WITH CARE AND MEDS. PAIN AND NAUSEA CONTROLLED THIS SHIFT. PATIENT TURNED Q 2 HOURS. PATIENT USES A BED MITCHELL PERICARE AND BARRIER CREAM DONE NEEDED. PATIENT BEEN NPO SINCE MIDNIGHT. FALL PRECAUTION IN PLACE. PATIENT IN BED ASLEEP AT THIS TIME BREATHING REGULAR AND UNLABOURED.
[2019-01-22 04:01] VITALS: BP 128/74
[2019-01-22 04:12] VITALS: BP 112/41
[2019-01-22 08:13] VITALS: BP 106/63
[2019-01-22 17:11] VITALS: BP 103/64
--- NOTE | 2019-01-22 19:57 | NUR ---
PATIENT PLEASANT AND COOPERATIVE WITH CARE. SHE DID VOICED SHE HAS ABDOMINAL PAIN TO RIGHT LOWER QUADRANT. STATES THE PAIN IS LESS THIS TIME THAN WHEN SHE CAME IN. USES BEDSIDE COMMODE WIHT ONE ASSIST. WILL CONT WITH PLAN OF CARE.
[2019-01-23 04:45] VITALS: BP 98/52
[2019-01-23 06:53] LABS: HEMATOCRIT 32.6 % (37.0-47.0); HEMOGLOBIN 10.6 gm/dL (12.0-15.0); MCH 28.3 pg (26.0-34.0); MCHC 32.5 g/dL (28.0-37.0); RBC 3.75 mil/uL (4.20-5.00); RDW 14.7 % (10.5-14.5); WBC 4.6 thou/uL (4.0-11.0)
[2019-01-23 07:04] LABS: CALCIUM 8.9 mg/dL (8.5-10.1)
[2019-01-23 07:08] LABS: POTASSIUM 2.8 mmol/L (3.5-5.1)
--- NOTE | 2019-01-23 07:34 | NUR ---
Assumed care at 1845. Pt resting in bed. AOX4. VSS. Gave pain medication once. Pt is on her periods. Denies N/V. Informed the incoming nursing of the critical lab results and also paged the MD. No identified needs at the moment. Call light within reach. Will continue to monitor.
[2019-01-23 07:38] VITALS: BP 107/55
[2019-01-23] MEDS ORDERED: CIPRO500 MG PO (10:30)
[2019-01-23] MEDS ORDERED: FLAGYL500 M1 PO (10:30)
[2019-01-23] MEDS ORDERED: PROTONIX40 M1 PO (10:31)
[2019-01-23 15:17] VITALS: BP 103/58
[2019-01-23 15:19] VITALS: BP 103/58
--- NOTE | 2019-01-23 16:06 | NUR ---
CARE TEAM INDICATED THAT PT IS MEDICALLY STABLE TO DC HOME THIS DAY. PT IS AWARE AND AGREEABLE. CM ARRANGED [employer] TRANSPORT LIKELY PICKUP AROUND 1700. PT IS TO NOTIFY HER GRANDPA OF WHEN THEY PICK HER UP FOR HIM TO MEET HER AT HE APARTMENT. NO OTHER CM INTERVENTION INDICATED. CASE CLOSED.
[2019-01-23 17:30] LABS: MAGNESIUM 2.3 mg/dL (1.8-2.4)
[2019-01-23 17:31] LABS: POTASSIUM 4.1 mmol/L (3.5-5.1)
--- NOTE | 2019-01-23 19:47 | NUR ---
Received awake on bed. Due medications given as prescribed. A+Ox4. Assisted in ADLs. Complained of pain, due PRN pain meds given as prescribed. AO2, able to transfer to chair and bedside commode. Pt with critical result of K=2.8 as per third shift lieutenant nurse, he already informed , a/w orders. On room air. With midline at R upper arm, NS at 125cc/hr, infusing well. Vital signs stable. Electrolyte protocol initiated on pt, 2 bags of IV KCL and 1 bag Mg given as per protocol, repeat labs taken by cashier receptionist. Post correction results relayed to Dr Vivar, K-4.1 and Mg 2.3. Discharge orders, prescription, follow up schedule given to patient. As per CM, pt with 24 hr care already set up, transport to supervisor opening and picking pt between 6-7pm, pt to call grandfather re: discharge time. Midline discontinued, applied pressure for 30 mins; no bleeding noted after removal and prior to pt leaving the lang. Pt fetched by [facility] staff, report given, pt called her grandfather re: discharge time. Left unit via stretcher, personal belongings with patient.
--- NOTE | 2019-01-24 11:07 | PATH ---
[facility] [place] [address] PATHOLOGY RPT PROCEDURE Name: HELEN SORENSEN Room #: 464-P DIS IN M.R.#: [id number] ������������������ Admission: 01/18/19 ������������������ Date of : 89 Discharge: 01/23/19 Report #: [id number] Path Case #: [id number] [facility] Accession Number: [id number] . 01 Material submitted: . PART A: duodenum - BX DUODENUM PART B: stomach - GASTRIC BX . 01 Clinical history: . Pre-op diagnosis: Nausea, vomiting, abdominal pain Post-op diagnosis: Hiatal hernia, duodenitis, gastritis . 02 Diagnosis: A. Small bowel mucosa, duodenum, endoscopic biopsy: - Mild non-specific acute and chronic duodenitis with focal fundic-type metaplasia, compatible with peptic duodenitis. . B. Gastric mucosa, gastritis rule out H. pylori, endoscopic biopsy: - Mild to moderate active gastritis with features of reactive gastropathy. - Negative for intestinal metaplasia or atrophy. - No definite Helicobacter pylori organisms identified (properly controlled immunohistochemical stain performed). LBQ/01/23/2019 . 02 Comment: The performed immunohistochemical stain shows a high background and non-specific reactivity due to other bacteria. Definite Helicobacter pylori organisms are not identified. Correlate clinically if required with more sensitive clinical/microbiology assays. (IUV/db; 01/23/2019) . 02 Electronically signed: . Keren Church MD, Pathologist NPI- [id number] . 01 Gross description: . A. The specimen is received in formalin, labeled "Helen Sorensen, biopsy duodenum, R/O celiac". Received are two segments of pale begum soft tissue measuring 0.3 cm each in maximum dimensions. The specimen is submitted entirely in cassette A1. . B. The specimen is received in formalin, labeled "Helen Sorensen, gastric biopsy, R/O H. pylori". Received is a segment of pale begum soft tissue measuring 0.5 cm in maximum dimensions. The specimen is submitted entirely in cassette B1. (CAA; 01/22/2019) QAC/QAC [address] [address] PATHOLOGY RPT PROCEDURE Name: HELEN SORENSEN Room #: 464-P DIS IN M.R.#: [id number] ������������������ Admission: 01/18/19 ������������������ Date of : 89 Discharge: 01/23/19 Report #: [id number] Path Case #: [id number] . 02 Pathologist provided ICD-10: K29.80, K29.70, K31.9 . 02 CPT . 164010, 892190, [id number] Specimen Comment: A courtesy copy of this report has been sent to Specimen Comment: [phone], . Specimen Comment: Report sent to / DR TREVINO Specimen Comment: A duplicate report has been generated due to demographic updates. Performed at: [address] [facility], [place] [id number] MD Jorge Sow MD Phone: [phone] Performed at: [address] [id number] MD Keren Church MD Phone: [phone]
== END 2019-01-23 18:30 | disposition home or self-care (01) | DRG 392 ==
LOC: ER 17:36 → EROBS 20:34 → 4W 20:34
PROVIDERS: Physician Assistant; ADMIT Hospitalist
PROC: 05HY33Z Insertion of Infusion Device into Upper Vein, Percutaneous Approach (ICD-10-PCS; 2019-01-20)
PROC: 0DB98ZX Excision of Duodenum, Via Natural or Artificial Opening Endoscopic, Diagnostic (ICD-10-PCS; principal; 2019-01-22)
PROC: 0DB68ZX Excision of Stomach, Via Natural or Artificial Opening Endoscopic, Diagnostic (ICD-10-PCS; principal; 2019-01-22)
DX: K52.9 Noninfective gastroenteritis and colitis, unspecified (principal); K29.70 Gastritis, unspecified, without bleeding; I10 Essential (primary) hypertension; G80.9 Cerebral palsy, unspecified; K44.9 Diaphragmatic hernia without obstruction or gangrene; K29.80 Duodenitis without bleeding; Z88.8 Allergy status to other drugs, medicaments and biological substances; Z88.6 Allergy status to analgesic agent; Z91.013 Allergy to seafood; Z83.3 Family history of diabetes mellitus; Z82.49 Family history of ischemic heart disease and other diseases of the circulatory system; Z79.899 Other long term (current) drug therapy
CPT/HCPCS: 10040; 27000; 62110; 62900; 70005

== ENCOUNTER 2019-05-13 11:19 | Emergency (ER) | payer OTHER ==
[~2019-05-13] VITALS: Ht 160 cm; Wt 61.2 kg
[~2019-05-13 11:19] MED LIST changes: +CIPRO500 MG PO; +FLAGYL500 M1 PO; +PROTONIX40 M1 PO; +ZOLPIDEM TARTRA10 MG PO
[2019-05-13 13:07] LABS: URINE BILIRUBIN NEGATIVE (Negative); URINE BLOOD 2+ (Negative); URINE CLARITY CLEAR; URINE COLOR YELLOW; URINE GLUCOSE-RANDOM* NEGATIVE (Negative); URINE KETONES NEGATIVE (Negative); URINE NITRITE-REFLEX NEGATIVE (Negative); URINE PROTEIN (DIPSTICK) NEGATIVE (Negative); URINE SPECIFIC GRAVITY 1.025 (1.005-1.035)
[2019-05-13 13:08] LABS: ABSOLUTE NEUTROPHILS 2.3 thou/uL (1.4-8.2); BASOPHILS 0.3 % (0.0-2.0); EOSINOPHILS 0.3 % (0.0-3.0); HEMATOCRIT 37.9 % (37.0-47.0); HEMOGLOBIN 12.2 gm/dL (12.0-15.0); LYMPHOCYTES 40.5 % (24.0-44.0); MCH 28.3 pg (26.0-34.0); MCHC 32.2 g/dL (28.0-37.0); MCV 87.8 fL (80.0-100.0); MONOCYTES 8.8 % (1.0-8.0); PLATELET COUNT 234 thou/uL (150-400); POLYS 50.1 % (36.0-66.0); RBC 4.31 mil/uL (4.20-5.00); RDW 14.8 % (10.5-14.5); WBC 4.6 thou/uL (4.0-11.0)
[2019-05-13 13:09] LABS: URINE LEUKOCYTES-REFLEX 1+ (Negative)
[2019-05-13 13:13] LABS: CALCIUM 9.2 mg/dL (8.5-10.1); CREATININE 0.8 mg/dL (0.6-1.0); POTASSIUM 3.5 mmol/L (3.5-5.1)
[2019-05-13 13:15] LABS: CASTS None Seen /LPF (None Seen); CRYSTALS None Seen /LPF (None Seen); SQUAMOUS >10 Many /LPF (0-3); URINE RBC 3-10 Few /HPF (0-2); URINE WBC-REFLEX 6-15 Few /HPF (0-5)
[2019-05-13 13:19] LABS: ALBUMIN 4.1 g/dL (3.4-5.0); TOTAL BILIRUBIN 0.4 mg/dL (<0.1-1.0); TOTAL PROTEIN 8.3 g/dL (6.4-8.2)
[2019-05-13 13:23] LABS: MAGNESIUM 2.1 mg/dL (1.8-2.4); TROPONIN-I <0.06 ng/mL (<0.06)
[2019-05-13] MEDS ORDERED: AMOXICILLI400 MG/5 M PO (15:10)
[2019-05-13 16:00] VITALS: BP 122/74
== END 2019-05-13 20:01 | disposition home or self-care (01) ==
LOC: ER 11:19
PROVIDERS: Emergency Medicine
DX: G80.9 Cerebral palsy, unspecified (principal); N39.0 Urinary tract infection, site not specified; G89.29 Other chronic pain; Z88.6 Allergy status to analgesic agent; Z91.018 Allergy to other foods; Z91.013 Allergy to seafood